=== PATIENT | female | born 1990 | race Native Hawaiian/Other Pacific Islander ===

== ENCOUNTER → 2017-01-25 | Outpatient (REF) | payer OTHER | LOC: M LABDRAW1 11:52 | PROVIDERS: ATTEND Physician Assistant Medical | DX: E28.2 Polycystic ovarian syndrome (principal) ==

== ENCOUNTER 2017-07-05 21:27 | Emergency (ER) | payer OTHER ==
[~2017-07-05] VITALS: Ht 152.4 cm; Wt 117.5 kg
[2017-07-05] MEDS ORDERED: FAMO1TAB11 (21:44)
[2017-07-05] MEDS ORDERED: ACET-683 PO (21:44)
[2017-07-05] MEDS ORDERED: MULTCHW14 PO (21:44)
[2017-07-05] MEDS ORDERED: NS 1,000 ML IV ONE (22:45)
[2017-07-05 22:52] LABS: BASO % 0.3 % (0.0-1.0); EOS # 0.2 10^3/uL (0.0-0.50); EOS % 1.9 % (0.0-3.0); IMMATURE GRANULOCYTE % 0.5 % (0-0); LYMPH # 2.9 10^3/uL (1.5-6.5); LYMPH % 26.8 % (24.0-44.0); MEAN CORPUSCULAR HEMOGLOBIN 30.1 pg (27.0-33.0); MEAN CORPUSCULAR HGB CONC 34.3 g/dl (32.0-36.5); MEAN CORPUSCULAR VOLUME 87.6 fl (80.0-96.0); MONO # 0.8 10^3/uL (0.0-0.8); NEUTROPHILS % 63.5 % (36.0-66.0); PLATELET COUNT, AUTOMATED 306 10^3/uL (150-450); RED CELL DISTRIBUTION WIDTH 11.9 % (11.5-14.5)
[2017-07-05 22:55] LABS: CONTROL LINE HCG INT CTR LINE PRESENT
[2017-07-05 22:56] LABS: INR 1.08
[2017-07-05] MEDS ORDERED: GASTROGRAFIN SOLUTION 30ML (Q9963) PO ONE (23:00)
[2017-07-05 23:03] LABS: ALBUMIN 3.4 GM/DL (3.2-5.2); ALBUMIN/GLOBULIN RATIO 0.89 (1.00-1.93); ALKALINE PHOSPHATASE 64 U/L (45-117); ALT/SGPT 59 U/L (12-78); ANION GAP 11 MEQ/L (8-16); AST/SGOT 41 U/L (15-37); BILIRUBIN,DIRECT 0.1 MG/DL (0.0-0.2); BILIRUBIN,TOTAL 0.6 MG/DL (0.2-1.0); BLOOD UREA NITROGEN 7 MG/DL (7-18); CALCIUM LEVEL 8.3 MG/DL (8.5-10.1); CARBON DIOXIDE LEVEL 25 MEQ/L (21-32); CHLORIDE LEVEL 100 MEQ/L (98-107); CREATININE FOR GFR 0.67 MG/DL (0.55-1.02); GLOMERULAR FILTRATION RATE > 60.0 (>60); GLUCOSE, FASTING 88 MG/DL (70-105); POTASSIUM SERUM 3.3 MEQ/L (3.5-5.1); SODIUM LEVEL 136 MEQ/L (136-145); TOTAL PROTEIN 7.2 GM/DL (6.4-8.2)
[2017-07-06] MEDS ORDERED: ISOVUE-370 76% 100ML VIAL (Q9967) As Ordered ONE (00:01)
--- NOTE | 2017-07-06 01:50 | REPUSA ---
CLINICAL HISTORY: Abdominal pain. TECHNIQUE: Multiple axial, sagittal and coronal CT images were obtained through the abdomen and pelvi s after administration of intravenous and oral contrast material. COMMENTS: Fluid-filled ileum suggestive of mild ileus. Mildly prominent proximal small bowel loops suggestive of mild ileus. 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 The liver is mildly enlarged with decreased attenuation without mass or defect. There is no intra or extrahepatic biliary ductal dilatation. The spleen is normal. The gallbladder is within normal limits . The pancreas is of normal contour and attenuation characteristics. There is no evidence of adrenal mass. Both kidneys demonstrate prompt and equal nephrograms. The kidneys are normal in size, shape and conf iguration. There is no evidence of renal or ureteral mass. No renal or ureteral calculi are identifie d. There is no hydroureter or hydronephrosis. No evidence for appendicitis. There is no bowel wall thickening. No evidence for small or large tl l obstruction. There is no evidence of abdominal ascites or lymphadenopathy. Prior gastric bypass carlos tanya. There is no evidence of intrinsic or extrinsic bladder mass. There is small amount of free pelvic flu id. Images of the lung bases show no evidence of pleural or parenchymal mass. There are no pleural effusi ons. The bony structures are free of lytic or blastic lesions. Multilevel degenerative changes are seen in volving the thoracolumbar spine. Scattered calcifications are seen involving the aorta and major bran ches compatible with atherosclerosis. IMPRESSION: Mild hepatomegaly with fatty infiltration. Fluid-filled ileum, probably mild gastroparesis/ileus. Mildly prominent proximal small bowel, probably mild ileus. Small amount of free pelvic fluid. Diffuse thickening of the underdistended bladder. Thank you for your kind referral of this patient.
[2017-07-06] MEDS ORDERED: ACETAMINOPHEN TAB 650MG DOSE (2X325MG) PO ONE (02:00)
[2017-07-06 02:24] LABS: BASO % 0.2 % (0.0-1.0); EOS # 0.2 10^3/uL (0.0-0.50); EOS % 1.8 % (0.0-3.0); IMMATURE GRANULOCYTE % 0.3 % (0-0); LYMPH # 2.7 10^3/uL (1.5-6.5); LYMPH % 27.9 % (24.0-44.0); MEAN CORPUSCULAR HEMOGLOBIN 29.5 pg (27.0-33.0); MEAN CORPUSCULAR HGB CONC 33.5 g/dl (32.0-36.5); MONO # 0.6 10^3/uL (0.0-0.8); MONO % 6.4 % (0.0-5.0); NEUTROPHILS % 63.4 % (36.0-66.0); PLATELET COUNT, AUTOMATED 266 10^3/uL (150-450); RED CELL DISTRIBUTION WIDTH 11.9 % (11.5-14.5); WHITE BLOOD COUNT 9.5 10^3/uL (4.0-10.0)
[2017-07-06 09:28] VITALS: BP 138/63
== END 2017-07-06 09:31 | disposition short-term general hospital (02) ==
LOC: M ED 21:27
DX: K91.840 Postprocedural hemorrhage of a digestive system organ or structure following a digestive system procedure (principal); Z98.0 Intestinal bypass and anastomosis status; Z79.899 Other long term (current) drug therapy; Z88.5 Allergy status to narcotic agent; Z91.030 Bee allergy status
CPT/HCPCS: 36430; 74177; 80048; 80076; 83605; 83690; 84703; 85025; 85610; 85730; 86850; 86900; 86901; 86920; 86927; 87040; 93041; 96360; 96361; 99285; P9016; P9017; Q9963; Q9967

== ENCOUNTER 2017-08-31 15:17 | Emergency (ER) | payer OTHER ==
[~2017-08-31] VITALS: Ht 152.4 cm; Wt 102.7 kg
[~2017-08-31 15:17] MED LIST: ACET-683 PO; FAMO1TAB11; MULTCHW14 PO
[2017-08-31] MEDS ORDERED: DRIS50002 PO (15:27)
[2017-08-31] MEDS ORDERED: NS 1,000 ML IV ONE (17:45)
[2017-08-31 18:03] LABS: CALCIUM OXALATE CRYSTALS SMALL
[2017-08-31 18:36] LABS: BASO # 0.1 10^3/uL (0.0-0.2); BASO % 0.7 % (0.0-1.0); EOS # 0.2 10^3/uL (0.0-0.50); EOS % 1.7 % (0.0-3.0); IMMATURE GRANULOCYTE % 0.1 % (0-0); LYMPH # 2.5 10^3/uL (1.5-6.5); LYMPH % 27.8 % (24.0-44.0); MEAN CORPUSCULAR HEMOGLOBIN 26.7 pg (27.0-33.0); MEAN CORPUSCULAR HGB CONC 32.4 g/dl (32.0-36.5); MEAN CORPUSCULAR VOLUME 82.5 fl (80.0-96.0); MONO # 0.6 10^3/uL (0.0-0.8); MONO % 6.9 % (0.0-5.0); NEUTROPHILS # 5.7 10^3/uL (1.8-7.7); NEUTROPHILS % 62.8 % (36.0-66.0); PLATELET COUNT, AUTOMATED 415 10^3/uL (150-450); RED CELL DISTRIBUTION WIDTH 13.3 % (11.5-14.5)
[2017-08-31 19:14] LABS: ANION GAP 10 MEQ/L (8-16); BLOOD UREA NITROGEN 6 MG/DL (7-18); CALCIUM LEVEL 8.7 MG/DL (8.5-10.1); CARBON DIOXIDE LEVEL 25 MEQ/L (21-32); CHLORIDE LEVEL 106 MEQ/L (98-107); CREATININE FOR GFR 0.63 MG/DL (0.55-1.02); GLOMERULAR FILTRATION RATE > 60.0 (>60); GLUCOSE, FASTING 80 MG/DL (70-105); HCG, SERUM QUANTITATIVE 28 MIU/ML; SODIUM LEVEL 141 MEQ/L (136-145)
--- NOTE | 2017-08-31 20:10 | REPUSA ---
Clinical history: Pelvic pain. Findings: The urinary bladder was only partially distended but grossly unremarkable. The right kidney measures 11.8 x 4.7 x 5.2 cm. The left kidney measures 12.3 x 6.3 x 5.0 cm. The kidneys demonstrate normal echotexture and echogenicity. There is no evidence of hydronephrosis or nephrolithiasis. No re nal masses are seen. No free fluid is appreciated. Impression: Unremarkable ultrasound examination of the kidneys.
--- NOTE | 2017-08-31 20:10 | REPUSA ---
Clinical history: Pain. Findings: Real-time transabdominal and transvaginal ultrasound images of the pelvis were obtained. An anteverted uterus is noted, measuring 9.0 x 4.7 6.4 cm. The uterus demonstrates normal echotexture a nd echogenicity. There is no evidence of an intrauterine . The right ovary measures 3.8 x 2. 1 x 1.9 cm. The left ovary measures 2.4 x 1.7 2.7 cm. No adnexal masses are seen. Color Doppler flow is seen within both ovaries. There is trace evidence of free fluid. Impression: Unremarkable ultrasound examination of the pelvis. No intrauterine identified. Differential diagnosis includes early , missed , or ectopic . Follow-up wit h serial serum beta hCG levels is recommended for further evaluation.
[2017-08-31] MEDS ORDERED: NITROFURANTOIN (MACROBID) 100 MG CAP PO ONE (21:15)
[2017-08-31] MEDS ORDERED: NITR100C39 PO (21:16)
[2017-08-31 21:32] VITALS: BP 131/77
[2017-09-01] MEDS ORDERED: NITROFURANTOIN 50 MG CAP PO ONE (09:00)
== END 2017-08-31 21:36 | disposition home or self-care (01) ==
LOC: M ED 15:17
DX: O23.41 Unspecified infection of urinary tract in pregnancy, first trimester (principal); Z3A.00 Weeks of gestation of pregnancy not specified; Z88.5 Allergy status to narcotic agent; Z91.030 Bee allergy status; O99.841 Bariatric surgery status complicating pregnancy, first trimester

== ENCOUNTER 2017-09-27 14:14 | Emergency (ER) | payer OTHER ==
[2017-09-27] MEDS: METOCLOPRAMIDE INJ 10MG/2ML VIAL (J2765) IV (17:30)
[2017-09-27] MEDS: NS 1,000 ML IV (17:45)
[2017-09-27 17:56] LABS: BASO # 0.1 10^3/uL (0.0-0.2); BASO % 0.6 % (0.0-1.0); EOS # 0.1 10^3/uL (0.0-0.50); EOS % 1.5 % (0.0-3.0); HEMATOCRIT 41.2 % (36.0-47.0); HEMOGLOBIN 13.3 g/dl (12.0-16.0); IMMATURE GRANULOCYTE % 0.1 % (0-0); LYMPH # 2.3 10^3/uL (1.5-6.5); LYMPH % 25.7 % (24.0-44.0); MEAN CORPUSCULAR HEMOGLOBIN 25.8 pg (27.0-33.0); MEAN CORPUSCULAR HGB CONC 32.3 g/dl (32.0-36.5); MEAN CORPUSCULAR VOLUME 79.8 fl (80.0-96.0); MONO # 0.6 10^3/uL (0.0-0.8); MONO % 6.7 % (0.0-5.0); NEUTROPHILS # 5.7 10^3/uL (1.8-7.7); NEUTROPHILS % 65.4 % (36.0-66.0); PLATELET COUNT, AUTOMATED 438 10^3/uL (150-450); RED BLOOD COUNT 5.16 10^6/uL (4.00-5.40); WHITE BLOOD COUNT 8.8 10^3/uL (4.0-10.0)
[2017-09-27 18:05] LABS: APPEARANCE, URINE CLOUDY (CLEAR); BACTERIA, URINE AUTO 1+ (NEGATIVE); BILIRUBIN, URINE AUTO NEGATIVE (NEGATIVE); BLOOD, URINE BLOOD 1+ (NEGATIVE); COLOR, URINE YELLOW (YELLOW); GLUCOSE, URINE (UA) AUTO NEGATIVE (NEGATIVE); KETONE, URINE AUTO 2+ mg/dL (NEGATIVE); LEUKOCYTE ESTERASE, URINE AUTO 1+ (NEGATIVE); MUCUS, URINE LARGE (NEGATIVE); NITRITE, URINE AUTO NEGATIVE (NEGATIVE); PROTEIN, URINE AUTO 1+ mg/dL (NEGATIVE); RBC, URINE AUTO 7 /HPF (0-3); SPECIFIC GRAVITY URINE AUTO 1.029 (1.002-1.035); SQUAMOUS EPITHELIAL CELL UR AU 21 /HPF (0-6); WBC, URINE AUTO 15 /HPF (0-3)
[2017-09-27 18:28] LABS: ANION GAP 10 MEQ/L (8-16); BLOOD UREA NITROGEN 6 MG/DL (7-18); CALCIUM LEVEL 8.6 MG/DL (8.5-10.1); CARBON DIOXIDE LEVEL 26 MEQ/L (21-32); CHLORIDE LEVEL 104 MEQ/L (98-107); CREATININE FOR GFR 0.59 MG/DL (0.55-1.02); GLOMERULAR FILTRATION RATE > 60.0 (>60); GLUCOSE, FASTING 81 MG/DL (70-105); HCG, SERUM QUANTITATIVE 55299 MIU/ML; POTASSIUM SERUM 3.6 MEQ/L (3.5-5.1); SODIUM LEVEL 140 MEQ/L (136-145)
[2017-09-27] MEDS: NITROFURANTOIN (MACROBID) 100 MG CAP PO (18:55)
== END 2017-09-27 19:05 | disposition home or self-care (01) ==
LOC: M ED 14:14
DX: O23.41 Unspecified infection of urinary tract in pregnancy, first trimester (principal); O21.9 Vomiting of pregnancy, unspecified; O24.410 Gestational diabetes mellitus in pregnancy, diet controlled; O99.281 Endocrine, nutritional and metabolic diseases complicating pregnancy, first trimester; E28.2 Polycystic ovarian syndrome; Z3A.01 Less than 8 weeks gestation of pregnancy; Z88.5 Allergy status to narcotic agent; Z91.030 Bee allergy status; Z98.0 Intestinal bypass and anastomosis status; Z98.890 Other specified postprocedural states
CPT/HCPCS: J2765